=== PATIENT | male | born 1955 | race Caucasian/White ===

== ENCOUNTER 2016-05-03 23:31 | Observation (INO) | payer BC ==
--- NOTE | ~2016-05-03 | HP ---
History And Physical [address] [place]. [address] NAME: MICHAEL COLEMAN : 55 STATUS : ADM Thuy PAT#: [id number] AGE: 60 ADM/REG DATE : 05/03/16 MR#: [id number] REPORT SERV DATE: 05/04/16 DICTATED BY: ORALIA SOLORZANO DATE: 05/04/16 REPORT STATUS : Draft TRANSCRIBED BY: MODSigrid DATE: 05/04/16 DATE OF ADMISSION: 05/03/2016 CHIEF COMPLAINT: Chest pain and heart "quivering." HISTORY OF PRESENT ILLNESS: A very pleasant 60-year-old white gentleman with no known history of CAD, but who reports that he underwent stress test with Dr. Lance early last year and possibly an arteriogram with in [place], [place] 1 to 2 years ago, which were both reportedly unremarkable. The patient states that on May 03, while at work, his heart "was quivering" 2 to 3 times throughout the day. He completed his workday, came home, ate dinner. After the dinner meal, he experienced some left-sided chest tightness that did not radiate elsewhere with some associated shortness of breath and belching. He denies nausea, diaphoresis, or dizziness. At its most intensity, he rates the chest discomfort as 6/10. At time of interview in the [facility], he is pain free. The episode lasted "few seconds." The quivering episodes are separate from his chest pain. The patient denies any personal history of myocardial infarction, stroke, DVT, or pulmonary embolus. The patient recently treated for an ingrown hair on his right side with antibiotics. Reports occasional palpitations. Consumes one cup of coffee daily. No syncopal episodes. Denies PND or orthopnea. PAST MEDICAL HISTORY: 1. Hypertension. 2. Butler's disease. 3. Denies dyslipidemia or diabetes. 4. GERD. 5. Hypothyroid, on replacement. 6. Sleep apnea, intolerant to CPAP. 7. Positive family history for early CAD. PAST SURGICAL HISTORY: 1. 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 2. Deviated septum repair. SOCIAL HISTORY: He is with one child. He works in the [employer] department at [employer]. He does not have an exercise routine. Denies tobacco, alcohol, or illicits. FAMILY HISTORY: Mother with a stroke at 62, at 64. Father with a heart attack in his 50s, in his late 50s. Brother with a heart attack in his 40s, remains alive at 57. Sister with CAD and stents at 63, alive at 64. REVIEW OF SYSTEMS: A 14-point review of systems performed, significant for HPI including snores per report with no recent sleep study and intolerant to CPAP. Reported stress test with Dr. Lance in July 2015, which was negative per the patient's report and seemingly an earlier or subsequent arteriogram with at [facility]. Otherwise, History And Physical [address] [facility] [place]. [address] NAME: MICHAEL COLEMAN : 55 STATUS : ADM Thuy PAT#: [id number] AGE: 60 ADM/REG DATE : 05/03/16 MR#: [id number] REPORT SERV DATE: 05/04/16 DICTATED BY: ORALIA SOLORZANO DATE: 05/04/16 REPORT STATUS : Draft TRANSCRIBED BY: DAVE DATE: 05/04/16 complete review of systems obtained and negative. ALLERGIES: NO KNOWN DRUG ALLERGIES. HOME MEDICINES: Aspirin 81 mg daily, Keflex 500 mg twice daily, vitamin B12 of 250 mcg daily, Synthroid 125 mcg daily, losartan 100 mg daily, nifedipine 30 mg nightly, omeprazole 40 mg twice daily, DHEA tablet 25 mg daily, prednisone 5 mg daily, AndroGel daily, vitamin D, Ambien 10 at bedtime. PHYSICAL EXAMINATION: VITAL SIGNS: Bilateral blood pressures on arrival, right 126/81, left 125/85, this morning 114/77, pulse 59, respirations 20, temperature 98.0, O2 saturation 93% on room air. Height 6 feet 0 inches, weight 229 pounds. BMI 31. GENERAL: Cooperative, in no apparent distress. HEENT: Pupils 2 mm, sclera nonicteric. Nares patent. Moist mucous membranes. No xanthelasma. NECK: Trachea midline, no thyromegaly. No JVD. No bruits. LYMPH: No cervical lymphadenopathy. No supraclavicular lymphadenopathy. RESPIRATORY: Unlabored respirations. Breath sounds clear bilaterally to posterior auscultation. No wheezes or rhonchi. CARDIOVASCULAR: Regular rate. No murmur, rub or gallop appreciated. Extremities without edema. Pulses 2+ bilaterally. ABDOMEN: Soft, nontender, nondistended, normal bowel sounds auscultated throughout. No organomegaly. SKIN: Warm, dry extremities. No pallor, or cyanosis. PSYCHIATRIC: Appropriate affect. Alert, oriented x3. LABORATORY DATA: Troponin less than 0.02 twice. Potassium 3.3 (repleted per protocol), BUN 17, creatinine 1.17, glucose 134, and magnesium 2.2. BNP less than 2. WBC 7.8, hemoglobin 14.3, hematocrit 41.2, platelet count 244,000. D-dimer is 0.43. EKG, sinus bradycardia. Chest x-ray reveals questionable mediastinal mass, cannot exclude tumor. 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 CTA of chest pending. ASSESSMENT AND PLAN: 1. Substernal chest pain. The patient has been observed in the [facility] overnight to rule out myocardial infarction with serial enzymes and serial EKGs and held n.p.o. We will proceed with MPI today following CTA of chest. The patient will be discharged home if low risk, no ischemia. To follow up with PCP and Cardiology as appropriate. If anything suggestive of ischemia, Cardiology referral will be initiated. 2. Palpitations. Check a TSH and 48-hour Holter, a new patient appointment with Cardiology. 3. Hypokalemia, repleted per protocol. 4. Hypertension, well controlled. Monitor blood pressure and continue home medications. 5. Abnormal chest x-ray. We will check a stat CTA of chest prior to further cardiac testing. History And Physical [address] [address] NAME: MICHAEL COLEMAN : 55 STATUS : ADM Thuy PAT#: [id number] AGE: 60 ADM/REG DATE : 05/03/16 MR#: [id number] REPORT SERV DATE: 05/04/16 DICTATED BY: ORALIA SOLORZANO DATE: 05/04/16 REPORT STATUS : Draft TRANSCRIBED BY: DAVE DATE: 05/04/16 ALKA/DAVE GEOVANY Alvarez, JOSE EDUARDO- / [id number] CC: GEOVANY Alvarez, LAMINATING MACHINE OFFBEARER-Peña Morley M.D.
[2016-05-03 22:33] LABS: BASOPHILS 0.5 %; BASOPHILS ABSOLUTE 0.04 10/3/uL (0.0-0.16); EOSINOPHILS ABSOLUTE 0.23 10/3/uL (0.0-0.53); ER CBC TAT 0 Hrs 11 Mins; HEMATOCRIT 41.2 % (40.0-51.0); HEMOGLOBIN 14.3 g/dL (13.6-17.8); IMMATURE GRANULOCYTES 0.3 %; IMMATURE GRANULOCYTES ABSOLUTE 0.02 10/3/uL (0.0-0.11); LYMPHOCYTES 27.5 %; LYMPHOCYTES ABSOLUTE 2.14 10/3/uL (0.67-4.30); MEAN CORPUS HGB CONC 34.7 g/dL (32.0-36.0); MEAN CORPUSCULAR HEMOGLOB 28.9 pg (26.0-34.0); MEAN CORPUSCULAR VOLUME 83.2 fL (80-100); MEAN PLATELET VOLUME 9.8 fL (9.2-13.0); MONOCYTES 8.6 %; MONOCYTES ABSOLUTE 0.67 10/3/uL (0.21-1.20); NEUTROPHILS 60.1 %; NEUTROPHILS ABSOLUTE 4.67 10/3/uL (2.02-8.40); PLATELET COUNT 244 10/3/uL (150-400); RBC DISTRIBUTION WIDTH 12.5 % (12.0-16.0); RED CELL COUNT 4.95 10/6/uL (4.7-6.1); WHITE BLOOD CELLS 7.8 10/3/uL (4.5-10.5)
[2016-05-03 22:34] LABS: MANUAL DIFF NO %
[2016-05-03 22:48] LABS: CALCIUM, SERUM 8.3 MG/DL (8.5-10.4); CHEST PAIN PROFILE TAT 0 Hrs 26 Mins; CHLORIDE, SERUM 102 MMOL/L (96-112); CO2 (CARBON DIOXIDE) 29 MMOL/L (24-34); CREATININE 1.17 MG/DL (0.70-1.30); GFR AFRICAN AMERICAN 78 ML/MIN (>=60); GFR NON AFRICAN AMERICAN 67 ML/MIN (>=60); POTASSIUM, SERUM 3.3 MMOL/L (3.5-5.3); SODIUM, SERUM 139 MMOL/L (135-148); TROPONIN I <0.02 NG/ML (<0.05)
[2016-05-03 22:49] LABS: BUN (BLOOD UREA NITROGEN) 17 MG/DL (6-23); GLUCOSE, SERUM 134 MG/DL (60-99)
[2016-05-03 22:51] LABS: INTERNATIONAL NORMAL RATI 1.1 UNITS (-); PARTIAL THROMBO TIME 30.7 SEC (22.5-37.2); PROTIME (NOT ORD) 13.8 SEC (12.0-14.5)
[~2016-05-03 23:31] MED LIST: AMB10 PO; ANDROGEL5 TOP; COZAAR100 MG PO; CYANO1000T PO; DHE1 OR; GENOTROPIN0.4 MG SC; LEVOTHROID125 MCG PO; P5 PO; VITAMIN D31000 UNIT PO
[2016-05-03 23:45] LABS: D-DIMER QUANTITATIVE 0.43 ug/mLFEU (< 0.50)
[2016-05-04] MEDS ORDERED: ASAB PO (01:13)
[2016-05-04] MEDS ORDERED: COZAAR100 MG PO (01:13)
[2016-05-04] MEDS ORDERED: SYN125 PO (01:13)
[2016-05-04] MEDS ORDERED: PRILOSEC40 MG PO (01:13)
[2016-05-04] MEDS ORDERED: K500 PO (01:13)
[2016-05-04] MEDS ORDERED: ADALAT CC30 MG PO (01:14)
[2016-05-04] MEDS ORDERED: P5 PO (01:14)
[2016-05-04] MEDS ORDERED: AMB10 PO (01:17)
[2016-05-04] MEDS ORDERED: ANDROGEL 1.62% TOP (01:17)
[2016-05-04] MEDS ORDERED: DHE1 PO (01:18)
[2016-05-04] MEDS ORDERED: B12250T PO (01:18)
[2016-05-04] MEDS ORDERED: VITAMIN D OTC PO (01:18)
[2016-05-04 06:05] LABS: TROPONIN I <0.02 NG/ML (<0.05)
[2016-05-04 12:52] LABS: FREE T4 0.99 NG/DL (0.76-1.46); ULTRASENSITIVE TSH 0.027 MCIU/ML (0.358-3.740)
[2016-05-04 12:59] LABS: BUN (BLOOD UREA NITROGEN) 12 MG/DL (6-23); CALCIUM, SERUM 8.6 MG/DL (8.5-10.4); CHLORIDE, SERUM 104 MMOL/L (96-112); CO2 (CARBON DIOXIDE) 26 MMOL/L (24-34); CREATININE 0.77 MG/DL (0.70-1.30); GFR AFRICAN AMERICAN 114 ML/MIN (>=60); GFR NON AFRICAN AMERICAN 99 ML/MIN (>=60); GLUCOSE, SERUM 103 MG/DL (60-99); POTASSIUM, SERUM 3.9 MMOL/L (3.5-5.3); SODIUM, SERUM 138 MMOL/L (135-148)
== END 2016-05-04 17:52 | disposition home or self-care (01) ==
LOC: ER 23:31 → CDU1 23:59 → CDU2 05-04 01:02
PROVIDERS: Clinical Nurse Specialist; Emergency Medicine
DX: R07.2 Precordial pain (principal); R00.2 Palpitations; E87.6 Hypokalemia; I10 Essential (primary) hypertension; Z79.899 Other long term (current) drug therapy; K21.9 Gastro-esophageal reflux disease without esophagitis; E03.9 Hypothyroidism, unspecified; G47.30 Sleep apnea, unspecified; E27.1 Primary adrenocortical insufficiency
CPT/HCPCS: 71020; 71275; 78452; 80048; 83735; 83880; 84439; 84443; 84484; 85025; 85379; 85610; 85730; 93005; 93017; 93225; 99285; A9270-GY; A9502; G0378; Q9967